=== PATIENT | female | born 1985 | race Caucasian/White ===

== ENCOUNTER 2016-08-29 09:08 | Emergency (ER) | payer OTHER ==
[2016-08-29] MEDS ORDERED: IBUPROFEN 800 MG TABLET PO STA (10:19)
[2016-08-29] MEDS ORDERED: IBUPROFEN 800 MG TABLET PO ONE (10:30)
== END 2016-08-29 10:36 | disposition home or self-care (01) ==
DX: S29.012A Strain of muscle and tendon of back wall of thorax, initial encounter (principal); X50.0XXA Overexertion from strenuous movement or load, initial encounter; Y93.F2 Activity, caregiving, lifting; Y92.89 Other specified places as the place of occurrence of the external cause; Y99.0 Civilian activity done for income or pay
CPT/HCPCS: 99283; A9270

== ENCOUNTER 2017-08-02 20:11 | Emergency (ER) | payer OTHER ==
[2017-08-02] MEDS ORDERED: KETOROLAC 60 MG/2 ML VIAL IVP STA (20:31)
--- NOTE | 2017-08-02 20:34 | ED Physician Documentation ---
PD HPI CHEST PAIN - Stated complaint Stated Complaint: CHEST PX/SOA - Chief complaint Chief Complaint: Resp - History obtained from History obtained from: Patient, Family - History of Present Illness Timing - onset: How many hours ago (4) Timing - onset during: Light activity (While searching for "a folder with important papers" that the patient had lost) Timing - duration: Hours (4) Timing - details: Abrupt onset, Constant, Still present in ED Pain level max: 7 Pain level now: 6 Quality: Tightness, Aching, Pain Location: Right chest Radiation: Right upper extremity Improved by: Nothing. No: Rest, ASA Worsened by: Movement (Movement of the right shoulder). No: Exertion, Inspiration, Eating Associated symptoms: No: Shortness of air, Diaphoresis, Nausea, Vomiting, Feeling faint / dizzy, General Weakness, Palpitations Similar symptoms before: Has not had sx before Recently seen: Not recently seen - Additional information Additional information: No family history of young cardiac disease. No recent travel. No immobilization. No family history of blood clots or clotting disorders Review of Systems Ten Systems: 10 systems reviewed and negative Constitutional: denies: Fever, Chills Ears: denies: Ear pain Nose: denies: Rhinorrhea / runny nose, Congestion Throat: denies: Sore throat Cardiac: denies: Palpitations, Calf pain Respiratory: denies: Cough GI: denies: Nausea, Vomiting, Diarrhea Skin: denies: Rash Musculoskeletal: denies: Neck pain, Back pain Neurologic: denies: Focal weakness, Numbness, Headache PD PAST MEDICAL HISTORY - Past Medical History Past Medical History: Yes Cardiovascular: None Respiratory: None Neuro: None Endocrine/Autoimmune: None GI: None ANSWERER: None : None HEENT: None Psych: None Musculoskeletal: None Derm: None - Past Surgical History Past Surgical History: Yes /ANSWERER: section - Present Medications Home Medications: Ambulatory Orders Medication Instructions Recorded Confirmed Ibuprofen 800 mg PO TID PRN #30 tablet 08/29/16 08/02/17 - Allergies Allergies/Adverse Reactions: Allergies Allergy/AdvReac Type Severity Reaction Status Date / Time Penicillins Allergy Rash Verified 08/02/17 20:22 Sulfa (Sulfonamide Allergy Rash Verified 08/02/17 20:22 Antibiotics) - Social History Does the pt smoke?: No Smoking Status: Never smoker Does the pt drink ETOH?: No Does the pt have substance abuse?: No - Immunizations Immunizations are current?: Yes - POLST Patient has POLST: No PD ED PE NORMAL - Vitals Vital signs reviewed: Yes - General General: Alert and oriented X 3, No acute distress - HEENT HEENT: Moist mucous membranes - Neck Neck: Supple, no meningeal sign - Cardiac Cardiac: RRR, Strong equal pulses - Respiratory Respiratory: No respiratory distress, Clear bilaterally - Abdomen Abdomen: Soft, Non tender, Non distended - Back Back: No spinal TTP - Derm Derm: Warm and dry, No rash - Extremities Extremities: No edema, No calf tenderness / cord, Other (TTP over the R anterior chest wall. Pain with ROM of the R shoulder. NVI. No swelling. ) - Neuro Neuro: Alert and oriented X 3 - Psych Psych: Normal mood, Normal affect Results - Vitals Vitals: Vital Signs - 24 hr 08/02/17 08/02/17 20:19 21:03 Temperature 37.1 C Heart Rate 97 103 H Respiratory 18 19 Rate Blood Pressure 113/68 120/79 O2 Saturation 99 100 Oxygen O2 Source Room air - EKG (time done) 2032 Rate: Rate (enter#) (102) Rhythm: Sinus tachycardia [place]: Normal Intervals: Normal [place] QRS: Normal Ischemia: Normal ST segments - Labs Labs: Laboratory Tests 08/02/17 08/02/17 08/02/17 21:00 21:00 21:00 WBC 10.6 RBC 4.90 Hgb 10.6 L Hct 32.8 L MCV 66.9 L MCH 21.5 L MCHC 32.2 RDW 17.6 H Plt Count 260 MPV 8.0 Neut # 6.0 Lymph # 3.6 H [place] # 0.6 Eos # 0.2 Baso # 0.0 Absolute Nucleated RBC 0.01 Nucleated RBC % 0.1 RBC Morph Micro Appear 2+ MICROCYTOSIS D-Dimer Sodium 140 Potassium 3.6 Chloride 106 Carbon Dioxide 23 Anion Gap 11.0 BUN 12 Creatinine 0.8 Estimated GFR (MDRD) 82 L Glucose 104 H Calcium 9.1 Total Bilirubin 0.4 AST 20 ALT 18 Alkaline Phosphatase 66 Troponin I < 0.04 Total Protein 6.9 Albumin 3.5 Globulin 3.4 Albumin/Globulin Ratio 1.0 Lipase 13 L Urine Color Urine Clarity Urine pH Ur Specific [place] Urine Protein Urine Glucose (UA) Urine Ketones Urine Occult Blood Urine Nitrite Urine Bilirubin Urine Urobilinogen Ur Leukocyte Esterase Ur Microscopic Review Urine Culture Comments Urine HCG, Qual 08/02/17 08/02/17 21:00 21:00 WBC RBC Hgb Hct MCV MCH MCHC RDW Plt Count MPV Neut # Lymph # [place] # Eos # Baso # Absolute Nucleated RBC Nucleated RBC % RBC Morph Micro Appear D-Dimer 253.8 Sodium Potassium Chloride Carbon Dioxide Anion Gap BUN Creatinine Estimated GFR (MDRD) Glucose Calcium Total Bilirubin AST ALT Alkaline Phosphatase Troponin I Total Protein Albumin Globulin Albumin/Globulin Ratio Lipase Urine Color YELLOW Urine Clarity CLEAR Urine pH 6.0 Ur Specific [place] 1.020 Urine Protein NEGATIVE Urine Glucose (UA) NEGATIVE Urine Ketones NEGATIVE Urine Occult Blood NEGATIVE Urine Nitrite NEGATIVE Urine Bilirubin NEGATIVE Urine Urobilinogen 0.2 (NORMAL) Ur Leukocyte Esterase NEGATIVE Ur Microscopic Review NOT INDICATED Urine Culture Comments NOT INDICATED Urine HCG, Qual NEGATIVE - Rads (name of study) cxr Radiology: Prelim report reviewed, EMP read contemporaneously, See rad report ( no acute disease) PD MEDICAL DECISION MAKING - ED course Complexity details: reviewed results, re-evaluated patient, considered differential (No ST elevation [place], no aortic dissection, no PE, no tension pneumothorax, no aortic aneurysm), d/w patient, d/w family ED course: Patient is a 32-year-old female who presents to the emergency department with right anterior chest wall pain, worse with movement and palpation. Reproduced by moving the right shoulder. Seems much more consistent with muscular strain. Possible that she strained this wall looking through her things today. She felt much better after Toradol. No evidence of acute coronary syndrome, pulmonary embolus, aortic dissection. Patient and family counseled regarding signs and symptoms for which I believe and urgent re-evaluation would be necessary. Patient with good understanding of and agreement to plan and is comfortable going home at this time This document was made in part using voice recognition software. While efforts are made to proofread this document, sound alike and grammatical errors may occur. Departure - Departure Disposition: 01 Home, Self Care Clinical Impression: Strain of chest wall Qualifiers: Encounter type: initial encounter Qualified Code(s): S29.011A - Strain of muscle and tendon of front wall of thorax, initial encounter Condition: Good Instructions: ED Chest Pain Atypical Unkn Cause Follow-Up: Vipul Coreas MD [Primary Care Provider] - Within 1 week Comments: Continue Motrin and Tylenol as needed for pain at home. Heating pads may also help. You can also try gentle stretching. Return if you worsen. .
--- NOTE | 2017-08-02 21:00 | XRAY Report ---
EXAM: CHEST RADIOGRAPHY EXAM DATE: 08/02/2017 08:49 PM. CLINICAL HISTORY: Chest pain. COMPARISON: None. TECHNIQUE: 1 view. FINDINGS: Lungs/Pleura: No focal opacities evident. No pleural effusion. No pneumothorax. Mediastinum: Within exam limitations, the cardiomediastinal contour is normal. Other: None. IMPRESSION: 1. No acute disease in the chest. [facility] Referring Provider Line: [phone] SITE ID: [id number]
[2017-08-02 21:06] LABS: BILIRUBIN,URINE NEGATIVE (NEGATIVE); GLUCOSE, URINE (UA) NEGATIVE (NEGATIVE); KETONES,URINE (UA) NEGATIVE (NEGATIVE); LEUKOCYTE ESTERASE, URINE NEGATIVE (NEGATIVE); NITRITE,URINE NEGATIVE (NEGATIVE); OCCULT BLOOD,URINE NEGATIVE (NEGATIVE); PROTEIN,URINE NEGATIVE (NEGATIVE); UROBILINOGEN,URINE 0.2 (NORMAL) E.U./dL (NORMAL)
[2017-08-02 21:09] LABS: CLARITY,URINE CLEAR (CLEAR); HCG UR QUAL NEGATIVE
[2017-08-02 21:13] LABS: BASOPHILS % (AUTO) 0.4 %; EOSINOPHILS # (AUTO) 0.2 10^3/uL (0.0-0.7); EOSINOPHILS % (AUTO) 2.3 %; HGB - HEMOGLOBIN 10.6 g/dL (12.0-16.0); LYMPHOCYTES # (AUTO) 3.6 10^3/uL (1.5-3.5); LYMPHOCYTES % (AUTO) 34.2 %; MEAN CORPUSCULAR HEMOGLOBIN 21.5 pg (27.0-31.0); MEAN CORPUSCULAR HGB CONC 32.2 g/dL (32.0-36.0); MEAN CORPUSCULAR VOLUME 66.9 fL (81.0-99.0); MONOCYTES # (AUTO) 0.6 10^3/uL (0.0-1.0); MONOCYTES % (AUTO) 6.1 %; PLT - PLATELET COUNT 260 10^3/uL (130-450); RED CELL DISTRIBUTION WIDTH 17.6 % (12.0-15.0); WHITE BLOOD COUNT 10.6 x10^3/uL (4.8-10.8)
[2017-08-02 21:23] LABS: ALBUMIN 3.5 g/dL (3.2-5.5); BILIRUBIN,TOTAL 0.4 mg/dL (0.2-1.0); CALCIUM 9.1 mg/dL (8.5-10.3); CREATININE 0.8 mg/dL (0.4-1.0); TOTAL PROTEIN 6.9 g/dL (6.7-8.2)
[2017-08-02 21:33] LABS: RBC MORPHOLOGY (MULTIPLE) 2+ MICROCYTOSIS (NORMAL)
[2017-08-02 21:45] VITALS: BP 130/80
== END 2017-08-02 21:45 | disposition home or self-care (01) ==
LOC: ED 20:11
DX: S29.011A Strain of muscle and tendon of front wall of thorax, initial encounter (principal); Y93.89 Activity, other specified; Y92.009 Unspecified place in unspecified non-institutional (private) residence as the place of occurrence of the external cause
CPT/HCPCS: 36415; 71045; 80053; 81001; 81003; 81025; 83690; 84484; 85025; 85379; 87086; 93005; 96374; 99283; 99284

== ENCOUNTER 2018-04-09 15:56 | Emergency (ER) | payer OTHER ==
[2018-04-09] MEDS ORDERED: BENZONATATE 100 MG CAPSULE PO STA (16:39)
[2018-04-09] MEDS ORDERED: ALBUTEROL NEB 2.5 MG/3 ML INH STA (16:39)
--- NOTE | 2018-04-09 16:44 | ED Physician Documentation ---
History of Present Illness - Stated complaint Stated Complaint: SOA/BURKETT - Chief complaint Chief Complaint: Resp - History obtained from History obtained from: Patient - History of Present Illness Timing: How many days ago (4) Pain level max: 3 Pain level now: 3 Improved by: Nothing Worsened by: Nothing - Additonal information Additional information: Patient is a 32-year-old female who presents to the emergency department after receiving her flu shot 4 days ago. She states since that time she has developed rhinorrhea, congestion coughing and generalized body aches. Unsure if she has had fevers or not. Is not been taking anything for this. She states she had a D and C last month. States her next menses should be within the next 3-4 days. They are trying to become . No nausea, no vomiting. No abdominal pain. No diarrhea. Review of Systems Constitutional: denies: Fever Nose: reports: Rhinorrhea / runny nose, Congestion Cardiac: denies: Chest pain / pressure Respiratory: reports: Cough, Wheezing (States has used inhalers in the past, but has not used it for this) GI: denies: Abdominal Pain, Nausea, Vomiting, Diarrhea : denies: Dysuria, Frequency, Hesitancy, Now EGA Skin: denies: Rash Musculoskeletal: denies: Neck pain, Back pain PD PAST MEDICAL HISTORY - Past Medical History Cardiovascular: None Respiratory: None Endocrine/Autoimmune: None GI: None LUNCH COOK: None : None HEENT: None Psych: None Musculoskeletal: None Derm: None - Past Surgical History Past Surgical History: Yes /LUNCH COOK: section - Present Medications Home Medications: Ambulatory Orders Medication Instructions Recorded Confirmed Albuterol Sulf [Ventolin Hfa 1 - 2 puffs INH Q4HR PRN #1 inhaler 04/09/18 Inhaler] Benzonatate [Tessalon Perle] 100 - 200 mg PO TID PRN #30 capsule 04/09/18 Cetirizine HCl/Pseudoephedrine 1 each PO BID PRN #30 tab.er.12h 04/09/18 [Zyrtec-D Tablet] Folic Acid 1 mg PO DAILY 04/09/18 04/09/18 Iron,Carbonyl [Iron Chews] 15 mg PO DAILY 04/09/18 04/09/18 Metformin HCl [Metformin HCl ER] 750 mg PO BID 04/09/18 04/09/18 - Allergies Allergies/Adverse Reactions: Allergies Allergy/AdvReac Type Severity Reaction Status Date / Time Penicillins Allergy Rash Verified 04/09/18 16:03 Sulfa (Sulfonamide Allergy Rash Verified 04/09/18 16:03 Antibiotics) - Social History Does the pt smoke?: No Smoking Status: Never smoker Does the pt drink ETOH?: No Does the pt have substance abuse?: No - Immunizations Immunizations are current?: Yes - POLST Patient has POLST: No PD ED PE NORMAL - Vitals Vital signs reviewed: Yes - General General: Alert and oriented X 3, No acute distress - HEENT HEENT: Ears normal, Moist mucous membranes, Pharynx benign - Neck Neck: Supple, no meningeal sign, No adenopathy - Cardiac Cardiac: RRR - Respiratory Respiratory: No respiratory distress, Other (Mild wheezing bilaterally) - Abdomen Abdomen: Soft, Non tender, Non distended - Derm Derm: Warm and dry - Extremities Extremities: No edema - Neuro Neuro: Alert and oriented X 3 Results - Vitals Vitals: Vital Signs - 24 hr 04/09/18 04/09/18 04/09/18 16:01 16:58 17:38 Temperature 36.5 C 36.7 C Heart Rate 101 H 105 H 99 Respiratory 18 20 18 Rate Blood Pressure 123/69 118/72 O2 Saturation 98 99 Oxygen O2 Source Room air - Labs Labs: Laboratory Tests 04/09/18 16:49 Ur Specific [place] 1.025 Urine HCG, Qual NEGATIVE - Rads (name of study) Chest x-ray Radiology: Prelim report reviewed, EMP read contemporaneously, See rad report (No acute abnormality) PD MEDICAL DECISION MAKING - ED course Complexity details: reviewed results, re-evaluated patient, considered differential, d/w patient ED course: Patient is a 32-year-old female with what appears to be a viral upper respiratory infection. She is well-appearing, nontoxic. No hypoxia or respiratory distress. Feels better after nebulizer treatment. Will prescribe an inhaler for home. No pneumonia on chest x-ray. Patient counseled regarding signs and symptoms for which I believe and urgent re-evaluation would be necessary. Patient with good understanding of and agreement to plan and is comfortable going home at this time This document was made in part using voice recognition software. While efforts are made to proofread this document, sound alike and grammatical errors may occur. Departure - Departure Disposition: 01 Home, Self Care Clinical Impression: Viral URI Condition: Good Instructions: ED URI Viral Follow-Up: LIEN JAY DO [Primary Care Provider] - Within 1 week Prescriptions: Albuterol Sulf [Ventolin Hfa Inhaler] 1 - 2 puffs INH Q4HR PRN #1 inhaler PRN Reason: Shortness Of Air/Wheezing Benzonatate [Tessalon Perle] 100 - 200 mg PO TID PRN #30 capsule PRN Reason: Cough Cetirizine HCl/Pseudoephedrine [Zyrtec-D Tablet] 1 each PO BID PRN #30 tab.er. 12h PRN Reason: Nasal Congestion Comments: There is no pneumonia on your chest x-ray. Use the inhaler as prescribed. Return if you worsen. This should improve over the next few days. Discharge Date/Time: 04/09/18 17:43
[2018-04-09 16:55] LABS: HCG UR QUAL NEGATIVE
[2018-04-09 17:39] VITALS: BP 118/72
--- NOTE | 2018-04-09 17:53 | XRAY Report ---
Reason: cough, fever Procedure Date: 04/09/2018 Accession Number: [id number] / [id number] Procedure: XR - Chest 2 View X-Ray CPT Code: 39192 FULL RESULT: EXAM: CHEST RADIOGRAPHY EXAM DATE: 04/09/2018 05:10 PM. CLINICAL HISTORY: Cough, fever. COMPARISON: 08/02/2017. TECHNIQUE: 2 views. FINDINGS: Lungs/Pleura: No focal opacities evident. No pleural effusion. No pneumothorax. Normal volumes. Mediastinum: Heart and mediastinal contours are normal. Other: None. IMPRESSION: No acute cardiopulmonary abnormality. [facility]
== END 2018-04-09 17:43 | disposition home or self-care (01) ==
LOC: ED 15:56
DX: J06.9 Acute upper respiratory infection, unspecified (principal); B97.89 Other viral agents as the cause of diseases classified elsewhere
CPT/HCPCS: 71046; 81025; 94640; 99283; A9270

== ENCOUNTER 2018-08-17 18:06 | Emergency (ER) | payer OTHER ==
--- NOTE | 2018-08-17 20:50 | ED Physician Documentation ---
PD HPI HEENT - Stated complaint Stated Complaint: EAR PX/FEVER - Chief complaint Chief Complaint: Heent - History obtained from History obtained from: Patient - History of Present Illness Timing - onset: Today (this morning) Timing - details: Abrupt onset (woke with symptoms) Pain level max: 8 Pain level now: 4 Location: Right ear, Left ear, Nose, Throat Improves: Nothing Worsens: Swalllowing Associated symptoms: Congestion, Rhinorrhea, Headache, Other (odynophagia). No: Fever Recently seen: Not recently seen - Additional information Additional information: c/o generalized headache since last night, then woke this morning with bilateral ear pain, sore throat and odynophagia. c/o nasal congestion, rhinorrhea. She says she called a medical advice hotline and was instructed to go to the emergency department so she can get a strep swab. Review of Systems Constitutional: denies: Fever, Chills, Sweats Ears: reports: Ear pain Nose: reports: Rhinorrhea / runny nose, Congestion Throat: reports: Sore throat Respiratory: denies: Cough GI: denies: Abdominal Pain PD PAST MEDICAL HISTORY - Past Medical History Past Medical History: No Cardiovascular: None Respiratory: None Neuro: None Endocrine/Autoimmune: None GI: None MEAL ATTENDANT: None : None HEENT: None Psych: None Musculoskeletal: None Derm: None - Past Surgical History Past Surgical History: Yes General: Other /MEAL ATTENDANT: section - Present Medications Home Medications: Ambulatory Orders Medication Instructions Recorded Confirmed Albuterol Sulf [Ventolin Hfa 1 - 2 puffs INH Q4HR PRN #1 inhaler 04/09/18 Inhaler] Benzonatate [Tessalon Perle] 100 - 200 mg PO TID PRN #30 capsule 04/09/18 Cetirizine HCl/Pseudoephedrine 1 each PO BID PRN #30 tab.er.12h 04/09/18 [Zyrtec-D Tablet] Folic Acid 1 mg PO DAILY 04/09/18 04/09/18 Iron,Carbonyl [Iron Chews] 15 mg PO DAILY 04/09/18 04/09/18 Metformin HCl [Metformin HCl ER] 750 mg PO BID 04/09/18 04/09/18 Hydrocodone/Acetaminophen 1 - 2 each PO Q6H PRN #10 tablet 08/17/18 [Hydrocodon-Acetaminophen 5-325] - Allergies Allergies/Adverse Reactions: Allergies Allergy/AdvReac Type Severity Reaction Status Date / Time Penicillins Allergy Rash Verified 08/17/18 18:21 Sulfa (Sulfonamide Allergy Rash Verified 04/09/18 16:03 Antibiotics) - Social History Does the pt smoke?: No Smoking Status: Never smoker Does the pt drink ETOH?: No Does the pt have substance abuse?: No - Immunizations Immunizations are current?: Yes - POLST Patient has POLST: No PD ED PE NORMAL - Vitals Vital signs reviewed: Yes - General General: Alert and oriented X 3, No acute distress, Well developed/nourished - HEENT HEENT: Ears normal, Moist mucous membranes, Other (mild posterior oropharyngeal erythema) - Neck Neck: Supple, no meningeal sign - Respiratory Respiratory: No respiratory distress, Clear bilaterally Results - Vitals Vitals: Vital Signs - 24 hr 08/17/18 08/17/18 08/17/18 18:20 19:27 21:13 Temperature 36.6 C Heart Rate 92 98 Respiratory 20 17 17 Rate Blood Pressure 132/82 H 110/70 O2 Saturation 99 99 Oxygen O2 Source Room air - Labs Labs: Laboratory Tests 08/17/18 18:30 Group A Strep Rapid Negative PD MEDICAL DECISION MAKING - ED course Complexity details: considered differential, d/w patient Departure - Departure Disposition: 01 Home, Self Care Clinical Impression: Viral URI Pharyngitis Qualifiers: Pharyngitis/tonsillitis etiology: unspecified etiology Qualified Code(s): J02.9 - Acute pharyngitis, unspecified Condition: Good Instructions: ED Pharyngitis Viral Report Pending Follow-Up: LIEN JAY DO [Primary Care Provider] - Prescriptions: Hydrocodone/Acetaminophen [Hydrocodon-Acetaminophen 5-325] 1 - 2 each PO Q6H PRN #10 tablet PRN Reason: pain Forms: Activity restrictions Discharge Date/Time: 08/17/18 21:25
[2018-08-17] MEDS ORDERED: DEXAMETHASONE 10 MG/ML VIAL PO STA (21:10)
[2018-08-17] MEDS ORDERED: HYDROcod/ACET 5/325 Prepack 4 PO STA (21:10)
[2018-08-17 21:13] VITALS: BP 110/70
[2018-08-17] MEDS ORDERED: CHERRY SYRUP 10 ML UDC PO ONE (21:20)
== END 2018-08-17 21:25 | disposition home or self-care (01) ==
LOC: ED 18:06
DX: J06.9 Acute upper respiratory infection, unspecified (principal); B97.89 Other viral agents as the cause of diseases classified elsewhere; J02.9 Acute pharyngitis, unspecified
CPT/HCPCS: 87070; 87430; 99283; A9270

== ENCOUNTER 2019-02-05 08:55 | Emergency (ER) | payer OTHER ==
--- NOTE | 2019-02-05 09:09 | ED Physician Documentation ---
PD HPI BACK INJURY - Stated complaint Stated Complaint: ds - History obtained from History obtained from: Patient - History of Present Illness Location: Left, Upper Type of injury: No: Fall, Twist Where injury occurred: Home (awoke with pain to upper back. Had some yesterday with turning upper back but not too much. Today with pain between scapulae and toward left shoulder mostly. Hurts to move upper back, neck and head. No fever, no rash.) Timing - onset: Yesterday Timing - details: Gradual onset, Still present, Waxing and waning (much worse with consistent pain and spasms of neck and upper back muscle with movement.) Quality: Pain, Spasm Worsened by: Moving, Palpating Associated symptoms: No: Fever, Weakness, Numbness, Incontinent of urine Contributing factors: No: Anticoagulated, Prior back surgery Similar symptoms before: Has not had sx before Recently seen: Not recently seen Review of Systems Constitutional: denies: Fever, Chills, Myalgias Nose: denies: Rhinorrhea / runny nose, Congestion Throat: denies: Sore throat Respiratory: denies: Cough GI: denies: Abdominal Pain, Nausea, Vomiting, Diarrhea Skin: denies: Rash, Lesions Musculoskeletal: reports: Neck pain, Back pain (thoracic area at scapular level.) Neurologic: denies: Focal weakness, Numbness, Near syncope, Headache PD PAST MEDICAL HISTORY - Past Medical History Cardiovascular: None Respiratory: None Neuro: None Endocrine/Autoimmune: None GI: None NETWORK DESKTOP SUPPORT SPECIALIST: None : None HEENT: None Psych: None Musculoskeletal: None Derm: None - Past Surgical History Past Surgical History: Yes General: Other /NETWORK DESKTOP SUPPORT SPECIALIST: section, Dilation and currettage - Present Medications Home Medications: Ambulatory Orders Medication Instructions Recorded Confirmed Cyclobenzaprine [Flexeril] 10 mg PO TID PRN 02/05/19 02/05/19 Naproxen 500 mg PO BID #20 tablet 02/05/19 Oxycodone HCl/Acetaminophen 1 - 2 each PO Q6H PRN #20 tablet 02/05/19 [Percocet 5-325 mg Tablet] dexAMETHasone [Decadron] 4 mg PO DAILY #5 tablet 02/05/19 - Allergies Allergies/Adverse Reactions: Allergies Allergy/AdvReac Type Severity Reaction Status Date / Time Penicillins Allergy Rash Verified 02/05/19 09:03 Sulfa (Sulfonamide Allergy Rash Verified 02/05/19 09:03 Antibiotics) - Social History Does the pt smoke?: No Smoking Status: Never smoker Does the pt drink ETOH?: No Does the pt have substance abuse?: No - Immunizations Immunizations are current?: Yes - POLST Patient has POLST: No PD ED PE NORMAL - Vitals Vital signs reviewed: Yes - General General: Alert and oriented X 3, Well developed/nourished, Other (she appears quite uncomfortable. tearful. markedly tender left thoracic/scapular area. Not tender midline per se. No rash nor sores. ) - HEENT HEENT: Pharynx benign - Neck Neck: Supple, no meningeal sign, No adenopathy - Cardiac Cardiac: RRR, No murmur - Respiratory Respiratory: Clear bilaterally - Abdomen Abdomen: Soft, Non tender - Derm Derm: Normal color, Warm and dry - Extremities Extremities: No tenderness to palpate, Normal ROM s pain, No edema, No calf tenderness / cord - Neuro Neuro: Alert and oriented X 3, monkey trainer 2-12 intact, No motor deficit, No sensory deficit Eye Opening: Spontaneous Motor: Obeys Commands Verbal: Oriented GCS Score: 15 Results - Vitals Vitals: Vital Signs - 24 hr 02/05/19 02/05/19 09:01 11:34 Temperature 36.8 C 36.5 C Heart Rate 105 H 81 Respiratory 16 18 Rate Blood Pressure 129/85 H 105/75 O2 Saturation 99 100 Oxygen O2 Source Room air - Rads (name of study) thoracic spine Radiology: Prelim report reviewed (normal), See rad report Departure - Departure Disposition: 01 Home, Self Care Clinical Impression: Strain of muscle at thorax level Condition: Stable Record reviewed to determine appropriate education?: Yes Instructions: ED Sprain Thoracic Spine Follow-Up: LIEN JAY DO [Primary Care Provider] - Prescriptions: dexAMETHasone [Decadron] 4 mg PO DAILY #5 tablet Naproxen 500 mg PO BID #20 tablet Oxycodone HCl/Acetaminophen [Percocet 5-325 mg Tablet] 1 - 2 each PO Q6H PRN #20 tablet PRN Reason: pain Comments: Heat and gentle stretching. You can consider continue your Flexeril muscle relaxant 3 times a day as needed. Use naproxen anti-inflammatory twice daily for 7 to 10 days with food. Use Decadron steroid anti-inflammatory as well for the next 5 days. Add Tylenol or Percocet if needed for pain. Follow-up with your primary if not improving over the next several days to week. Physical treatment such as massage and chiropractic are also good. Discharge Date/Time: 02/05/19 11:36
[2019-02-05] MEDS ORDERED: HYDROmorphone 1 MG/ML CARPUJECT IM STA (09:23)
[2019-02-05] MEDS ORDERED: KETOROLAC 60 MG/2 ML VIAL IM STA (09:23)
[2019-02-05] MEDS ORDERED: DEXAMETHASONE 10 MG/ML VIAL PO STA (09:23)
[2019-02-05] MEDS ORDERED: CHERRY SYRUP 10 ML UDC PO ONE (09:23)
--- NOTE | 2019-02-05 10:38 | XRAY Report ---
Reason: scapular area pain for 3 days Procedure Date: 02/05/2019 Accession Number: [id number] / [id number] Procedure: XR - Thoracic Spine 2 View CPT Code: FULL RESULT: EXAM: THORACIC SPINE RADIOGRAPHY EXAM DATE: 02/05/2019 10:15 AM. CLINICAL HISTORY: Upper back pain. Scapular area pain for 3 days. COMPARISON: CHEST 2 VIEW 04/09/2018 5:10 PM. TECHNIQUE: 3 views. FINDINGS: Alignment: There is minimal left convex curvature of the lower thoracic spine measuring approximately 5 degrees from the superior endplate of T7 to the inferior endplate of T10. This appears similar to prior chest radiographs. No spondylolisthesis. Bones: No fractures or bone lesions. Disks: Normal. Disk heights are maintained. Soft Tissues: Normal. The visualized lungs and cardiomediastinal silhouette are normal. IMPRESSION: 1. No acute osseous abnormality of the thoracic spine. 2. Minimal left convex curvature of the lower thoracic spine, similar to prior chest radiographs. [facility]
[2019-02-05 11:36] VITALS: BP 105/75
== END 2019-02-05 11:36 | disposition home or self-care (01) ==
LOC: ED 08:55
DX: S29.019A Strain of muscle and tendon of unspecified wall of thorax, initial encounter (principal)
CPT/HCPCS: 72070; 96372; 99283; 99284; A9270; J1170